=== PATIENT | female | born 1940 | race Caucasian/White ===

== ENCOUNTER → 2018-05-26 | Outpatient (CLI) | payer OTHER | LOC: CAT 09:30 | DX: M47.814 Spondylosis without myelopathy or radiculopathy, thoracic region (principal); K44.9 Diaphragmatic hernia without obstruction or gangrene; D18.09 Hemangioma of other sites ==

== ENCOUNTER → 2018-06-05 | Outpatient (CLI) | payer OTHER ==
--- NOTE | ~2018-06-05 | EKG ---
[place] [address] [facility] [email or web address] [address] ELECTROCARDIOGRAM REPORT Name: LANIEKITTY Room #: JOSELINE Abad#: [id number] Admission: 06/05/18 Attend Phys: Claudine Sal MD Discharge: Date of : 42 Report #: [id number] THIS REPORT FOR: //name// [facility] Test Date: 2018-06-05 Test Time: 15:24:15 Pat Name: DEEPAK DELA CRUZ Department: Room: Gender: F [employer] Services Technician: Jaylin YAP : 1940 Requested By: Claudine Sal Order Number: [id number] MD: Herbert Quick Measurements Intervals [place] Rate: 62 P: -31 IL: 220 QRS: -10 QRSD: 77 T: 57 QT: 431 QTc: 438 Interpretive Statements Sinus rhythm Prolonged [place] interval Minimal ST depression, lateral leads No previous ECG available for comparison Electronically Signed On 06-06-2018 8:30:56 CDT by Herbert Quick [email or web address] <ELECTRONICALLY SIGNED> By: Herbert Quick MD, [facility] 06/06/18 0830 1524 1524 Herbert Quick MD, FACC /EPI
[2018-06-05 15:28] LABS: BASOPHILS 0.3 % (0.0-2.0); EOSINOPHILS 2.8 % (0.0-3.0); HEMATOCRIT 34.8 % (37.0-47.0); HEMOGLOBIN 12.1 gm/dL (12.0-15.0); LYMPHOCYTES 24.9 % (24.0-44.0); MCH 31.7 pg (26.0-34.0); MCHC 34.8 g/dL (28.0-37.0); MCV 91.1 fL (80.0-100.0); MONOCYTES 9.1 % (1.0-8.0); PLATELET COUNT 233 thou/uL (150-400); POLYS 62.9 % (36.0-66.0); RBC 3.82 mil/uL (4.20-5.00); RDW 12.9 % (10.5-14.5); WBC 7.9 thou/uL (4.0-11.0)
[2018-06-05 15:32] LABS: CREATININE 0.8 mg/dL (0.6-1.0); POTASSIUM 3.9 mmol/L (3.5-5.1)
[2018-06-05 15:40] LABS: TOTAL BILIRUBIN 0.5 mg/dL (<0.1-1.0); TOTAL PROTEIN 6.7 g/dL (6.4-8.2)
== END ==
LOC: CV 13:59
PROVIDERS: Anesthesiology
DX: Z01.810 Encounter for preprocedural cardiovascular examination (principal); I10 Essential (primary) hypertension; K44.9 Diaphragmatic hernia without obstruction or gangrene; J42 Unspecified chronic bronchitis; D53.9 Nutritional anemia, unspecified